=== PATIENT | female | born 1960 | race Two or more races ===

== ENCOUNTER 2017-09-16 08:29 | Emergency (ER) | payer OTHER ==
[~2017-09-16] VITALS: Ht 154.9 cm; Wt 71.7 kg
[2017-09-16 08:52] VITALS: BP 125/78
[2017-09-16] MEDS ORDERED: HYDROmorphone HCL 2 MG/ML VL IM ONE (09:00)
[2017-09-16] MEDS ORDERED: ONDANSETRON HCL 4 MG/2 ML VIAL IM ONE (09:00)
== END 2017-09-16 09:46 | disposition home or self-care (01) ==
LOC: ER 08:29
DX: G89.29 Other chronic pain (principal); M54.5 Low back pain; Z85.3 Personal history of malignant neoplasm of breast
CPT/HCPCS: 96372; 99284; J1170; J2405